=== PATIENT | female | born 1930 | race Caucasian/White ===

== ENCOUNTER 2017-01-28 00:14 | Emergency (ER) | payer BC ==
[~2017-01-28] VITALS: Ht 152.4 cm; Wt 42.0 kg
[~2017-01-28 00:14] MED LIST: ASPI81TA28 PO; CHOL100010 PO; ENAL1TAB31 PO; NRV5 PO
[2017-01-28 00:18] VITALS: TEMP 36.4; Ht 152.4 cm; Wt 42.0 kg
[2017-01-28 01:04] VITALS: O2SAT 99
[2017-01-28 01:12] LABS: BASO % 0.7 %; BASO ABS # 0.05 K/uL (0-0.2); COMPLETE YES; EOS % 9.5 %; HEMATOCRIT 38.5 % (37-47); IG% 0.1 %; LYMPH % 31.9 %; LYMPH ABS # 2.15 K/uL (1.2-3.4); MEAN CELL VOLUME 82.6 fL (80-100); MEAN CORPUSCULAR HEMOGLOBIN 28.8 pg (25-34); MEAN CORPUSCULAR HGB CONC 34.8 g/dl (32-36); MEAN PLATELET VOLUME 8.9 fL (7.4-10.4); MONO % 8.2 %; NEUT % 49.6 %; PLATELET COUNT 258 K/uL (130-400); RED BLOOD COUNT 4.66 M/uL (4.2-5.4); WHITE BLOOD COUNT 6.74 K/uL (4.8-10.8)
[2017-01-28 01:40] LABS: ALT/SGPT 25 U/L (12-78); AST/SGOT 20 U/L (15-37); BLOOD UREA NITROGEN 12 mg/dl (7-18); BUN/CREATININE RATIO 17.8 (10-20); CALCIUM 9.6 mg/dl (8.5-10.1); CARBON DIOXIDE 28 mmol/L (21-32); CHLORIDE 104 mmol/L (98-107); CREATININE 0.69 mg/dl (0.60-1.20); GLUCOSE 107 mg/dl (70-99); SODIUM 137 mmol/L (136-145)
[2017-01-28 01:43] LABS: ALKALINE PHOSPHATASE 67 U/L (45-117)
[2017-01-28] MEDS ORDERED: CHOL100027 PO (01:54)
[2017-01-28] MEDS ORDERED: ENAL5TAB83 PO (01:55)
[2017-01-28 02:55] VITALS: BP 130/65; PULSE 64; O2SAT 99
--- NOTE | 2017-01-28 02:57 | EMERGENCY ROOM VISIT NOTE ---
History Report prepared by Scribe: Rj Ruff Under the Supervision of: Dr. Ismael Saldaña D.O. First contact with patient: 00:23 Chief Complaint: BACK PAIN Stated Complaint: MIDDLE BACK PAIN History of Present Illness The patient is a 86 year old female who presents to the Emergency Room with complaints of intermittent upper back pain beginning three days ago. She has taken Tylenol for her pain which has improved her symptoms. She denies any nausea, diaphoresis, chest pain, or SOB. The patient's pain is not worsened with activity. Source of History: patient Onset: three days ago Position: back (upper) Timing: intermittent Modifying Factors (Relieving): tylenol Associated Symptoms: No diaphoresis, No chest pain, No SOB, No nausea Review of Systems See HPI for pertinent positives and negatives. A total of ten systems were reviewed and were otherwise negative. Past Medical & Surgical Medical Problems: (1) Chest pain (2) Hypertension Family History No significant family history Social History Smoking Status: Never Smoker Housing Status: lives with family Current/Historical Medications Scheduled Aspirin (Aspirin Ec), 81 MG PO DAILY Cholecalciferol (Vitamin D 1000 Unit), 2,000 INTER.UNIT PO DAILY Enalapril (Vasotec), 1 TAB PO DAILY Allergies Coded Allergies: Niacin (Verified Allergy, Intermediate, Rash, 01/28/17) Statins (Verified Allergy, Intermediate, breathing problems, 01/28/17) Sulfa Antibiotics (Verified Allergy, Intermediate, breathing problems, ) Physical Exam Vital Signs Date Time Temp Pulse Resp B/P (MAP) Pulse Ox O2 Delivery O2 Flow Rate FiO2 01/28/17 02:28 72 18 138/68 100 Nasal Cannula 2.0 01/28/17 01:04 99 Nasal Cannula 2.0 01/28/17 01:03 Nasal Cannula 2.0 01/28/17 01:03 68 18 130/67 99 Nasal Cannula 2.0 01/28/17 01:03 99 Nasal Cannula 2.0 01/28/17 00:46 68 01/28/17 00:18 36.4 73 18 178/80 98 Room Air Physical Exam GENERAL: Awake, alert, well-appearing, in no distress HENT: Normocephalic, atraumatic. Oropharynx unremarkable. EYES: Normal conjunctiva. Sclera non-icteric. NECK: Supple. No nuchal rigidity. FROM. No JVD. RESPIRATORY: Clear to auscultation. CARDIAC: Regular rate, normal rhythm. Extremities warm and well perfused. Pulses equal. ABDOMEN: Soft, non-distended. No tenderness to palpation. No rebound or guarding. No masses. RECTAL: Deferred. MUSCULOSKELETAL: Chest examination reveals no tenderness. The back is symmetrical on inspection without obvious abnormality. There is no CVA tenderness to palpation. No joint edema. LOWER EXTREMITIES: Calves are equal size bilaterally and non-tender. No edema. No discoloration. NEURO: Normal sensorium. No sensory or motor deficits noted. SKIN: No rash or jaundice noted. Medical Decision & Procedures ER Provider Diagnostic Interpretation: One View Chest X-ray interpreted by me: Negative for infiltrate, pneumothorax, or pneumonia. Laboratory Results 01/28/17 00:00 Red Blood Count 4.66, Mean Corpuscular Volume 82.6, Mean Corpuscular Hemoglobin 28.8, Mean Corpuscular Hemoglobin Concent 34.8, Mean Platelet Volume 8.9, Neutrophils (%) (Auto) 49.6, Lymphocytes (%) (Auto) 31.9, Monocytes (%) (Auto) 8.2, Eosinophils (%) (Auto) 9.5, Basophils (%) (Auto) 0.7, Neutrophils # (Auto) 3.34, Lymphocytes # (Auto) 2.15, Monocytes # (Auto) 0.55, Eosinophils # (Auto) 0.64, Basophils # (Auto) 0.05 01/28/17 00:00 Test 01/28/17 00:00 01/28/17 02:36 White Blood Count 6.74 K/uL (4.8-10.8) Red Blood Count 4.66 M/uL (4.2-5.4) Hemoglobin 13.4 g/dL (12.0-16.0) Hematocrit 38.5 % (37-47) Mean Corpuscular Volume 82.6 fL (80-100) Mean Corpuscular Hemoglobin 28.8 pg (25-34) Mean Corpuscular Hemoglobin Concent 34.8 g/dl (32-36) Platelet Count 258 K/uL (130-400) Mean Platelet Volume 8.9 fL (7.4-10.4) Neutrophils (%) (Auto) 49.6 % Lymphocytes (%) (Auto) 31.9 % Monocytes (%) (Auto) 8.2 % Eosinophils (%) (Auto) 9.5 % Basophils (%) (Auto) 0.7 % Neutrophils # (Auto) 3.34 K/uL (1.4-6.5) Lymphocytes # (Auto) 2.15 K/uL (1.2-3.4) Monocytes # (Auto) 0.55 K/uL (0.11-0.59) Eosinophils # (Auto) 0.64 K/uL (0-0.5) Basophils # (Auto) 0.05 K/uL (0-0.2) RDW Standard Deviation 40.8 fL (36.4-46.3) RDW Coefficient of Variation 13.5 % (11.5-14.5) Immature Granulocyte % (Auto) 0.1 % Immature Granulocyte # (Auto) 0.01 K/uL (0.00-0.02) Anion Gap 5.0 mmol/L (3-11) Est Creatinine Clear Calc Drug Dose 40.2 ml/min Estimated GFR () 92.6 Estimated GFR (Non- 79.9 BUN/Creatinine Ratio 17.8 (10-20) Calcium Level 9.6 mg/dl (8.5-10.1) Total Bilirubin 0.3 mg/dl (0.2-1) Direct Bilirubin < 0.1 mg/dl (0-0.2) Aspartate Amino Transf (AST/SGOT) 20 U/L (15-37) Alanine Aminotransferase (ALT/SGPT) 25 U/L (12-78) Alkaline Phosphatase 67 U/L (45-117) Total Protein 7.8 gm/dl (6.4-8.2) Albumin 3.9 gm/dl (3.4-5.0) Bedside Troponin I < 0.030 ng/ml (0-0.045) Laboratory results reviewed by me ECG Indication: back/shoulder pain Rate (beats per minute): 69 Rhythm: normal sinus Findings: other (Normal intervals. Non-specific ST/T wave change.) ED Course 0029: The patient was evaluated in room A12B. A complete history and physical exam was performed. 0240: I reassessed the patient. She is resting comfortably. 0255: I reevaluated the patient. Discussed results and discharge instructions: she verbalized understanding and agreement. The patient is ready for discharge. Medical Decision Differential diagnoses include but are not limited to; musculoskeletal back pain , sprain, strain, acute coronary syndrome, and pneumonia. Patient remained in stable condition nontoxic normal vital signs no chest or back pain throughout emergency department evaluation. Patient's troponins are 0 her heart score is less than 3 I do not suspect acute coronary syndrome or acute [place] pulmonary embolism or thoracic aortic dissection. I have discussed the workup the patient at bedside and she will follow-up with her primary care physician Impression Primary Impression: Back pain Scribe Attestation The scribe's documentation has been prepared under my direction and personally reviewed by me in its entirety. I confirm that the note above accurately reflects all work, treatment, procedures, and medical decision making performed by me. Departure Information Dispostion Home / Self-Care Referrals Carlos Short, D.O. (PCP) Patient Instructions Chest Pain - [facility], Diskectomy Minimally Invasive Tx, [facility]
--- NOTE | 2017-01-28 07:06 | DIAGNOSTIC IMAGING REPORT ---
CHEST ONE VIEW PORTABLE CLINICAL HISTORY: Chest pain radiating to back. COMPARISON STUDY: Chest radiograph October 20, 2015. FINDINGS: Lung volumes are normal. There is no consolidation to suggest pneumonia. Incidental note is made of mild scoliosis of the thoracic spine. Slight prominence of the right cardiac border is unchanged. There is borderline cardiomegaly without evidence of pulmonary edema. The appearance of the chest is unchanged. IMPRESSION: No acute cardiopulmonary findings. Electronically signed by: Vincent Coulter M.D. 01/28/2017 7:05 AM Dictated Date/Time: 01/28/2017 7:03 AM
== END 2017-01-28 03:04 | disposition home or self-care (01) ==
LOC: C.EDB 00:15 → C.EDA 03:04
DX: M54.9 Dorsalgia, unspecified (principal); I10 Essential (primary) hypertension; Z79.899 Other long term (current) drug therapy